=== PATIENT | female | born 2000 | race American Indian/Alaskan Native ===

== ENCOUNTER 2022-08-02 16:26 | Outpatient (CLI) | payer MEDICAID ==
[2022-08-02 17:36] VITALS: BP 115/60
== END 2022-08-02 20:56 | disposition home or self-care (01) ==
LOC: APU 16:26 → TRG 16:26
PROVIDERS: ATTEND Obstetrics & Gynecology
DX: Z34.93 Encounter for supervision of normal pregnancy, unspecified, third trimester (principal); Z3A.37 37 weeks gestation of pregnancy
CPT/HCPCS: 36415; 59025; 84112